=== PATIENT | female | born 1990 ===

== ENCOUNTER 2017-11-12 16:50 | Inpatient (IN) | payer BC, OTHER ==
[2017-11-12] MEDS: ELECTROLYTE-148 SOLN 1,000 ML IV SCH ×2 (17:00→20:20)
[2017-11-12 18:22] VITALS: BMI 38.0
[2017-11-12] MEDS ORDERED: BUTORPHANOL TARTRATE 1 MG/ML VIAL IVPB ONE (18:45)
[2017-11-12] MEDS ORDERED: PROMETHAZINE HCL 25 MG/1 ML VIAL IVPUSH ONE (18:45)
[2017-11-12 18:58] LABS: BASO % 0.6 % (0-2.0); EOS % 0.7 % (0-4.5); HEMATOCRIT 34.5 % (32.4-45.2); HEMOGLOBIN 11.6 GM/dL (10.7-15.3); LYMPH % 15.2 % (8-40); MCH 27.3 pg (25.7-33.7); MCHC 33.6 g/dl (32.0-36.0); MEAN CELL VOLUME 81.4 fl (80-96); MEAN PLT VOLUME 7.5 fl (7.5-11.1); MONO % 6.4 % (3.8-10.2); NEUT % 77.1 % (42.8-82.8); PLATELET COUNT 281 K/MM3 (134-434); RBC 4.23 M/mm3 (3.60-5.2); RDW 15.4 % (11.6-15.6); WHITE BLOOD COUNT 10.9 K/mm3 (4.0-10.0)
[2017-11-12] MEDS ORDERED: TUBERCULIN PPD 5 TU/0.1ML SYRINGE (IN PATIENT USE ONLY) ID ONE (19:00)
[2017-11-12] MEDS ORDERED: OXYTOCIN 30 UNITS in 0.9% NS 30 UNIT/500 ML INFUS.BAG IVPB SCH (19:00)
[2017-11-12 19:21] LABS: INR 1.02 (0.82-1.09); PROTHROMBIN TIME (PATIENT) 11.5 SEC (9.7-13.0)
[2017-11-12 19:23] LABS: ACTIVATED PTT 25.3 SECONDS (25.2-36.5)
[2017-11-12 19:27] LABS: ANION GAP 11 (8-16); BLOOD UREA NITROGEN 8 mg/dL (7-18); CALCIUM 8.4 mg/dL (8.5-10.1); CHLORIDE 108 mmol/L (98-107); CO2 21 mmol/L (21-32); CREATININE 0.4 mg/dL (0.55-1.02); GLUCOSE,RANDOM 66 mg/dL (74-106); POTASSIUM 3.9 mmol/L (3.5-5.1); SODIUM 140 mmol/L (136-145)
[2017-11-12] MEDS ORDERED: FENTANYL/BUPIVACAINE/NS/PF - PCEA - 50 ML DISP.SYRIN EP ONE (19:33)
[2017-11-12] MEDS ORDERED: OXYTOCIN 20 UNITS in 0.9% NS 20 UNIT/1,000 ML INFUS.BAG IV ONE (19:36)
[2017-11-12] MEDS ORDERED: BUPIVACAINE HCL/PF 0.25% (2.5MG/ML) 10 ML VIAL ONE (19:45)
[2017-11-12] MEDS: FENTANYL/BUPIVACAINE/NS/PF - PCEA - 50 ML DISP.SYRIN EP SCH (20:05)
[2017-11-12] MEDS ORDERED: NALOXONE HCL 0.4 MG/ML VIAL IVPUSH PRN (20:19)
--- NOTE | 2017-11-12 20:35 | HP ---
Past Medical History - Admission Chief Complaint: Here for induction of labor History of Present Illness: 27 y/o P1 female at 39 weeks here for elective induction of labor. Pregnany complicated only by maternal obesity. GBS negative. +FM, no VB. Occ Contractions. Pt 4cm dilated in office yesterday. History Source: Patient, Medical Record Limitations to Obtaining History: No Limitations - Past Medical History Cardiovascular: No: HTN Pulmonary: No: Asthma Gastrointestinal: No: GERD, Irritable Bowel Disease Hepatobiliary: No: Hepatitis B, Hepatitis C Renal/: No: Renal Failure, UTI Reproductive: No: Ectopic , Fibroids, PID ...: 6 ...Para: 1 ...Term: 1 ...: 0 ...Spon : 3 ...Induced : 1 ...Multiple Gestation: 0 ...LMP: 02/07/17 ... Weeks Gestation by Dates: 39.5 ...EDC by Dates: 11/14/17 ...EDC by Sono: 11/17/17 Heme/Onc: No: Anemia Psych: No: Anxiety, Bipolar, Depression - Past Surgical History Past Surgical History: Yes: None Hx Myomectomy: No Hx Transabdominal Cerclage: No - Smoking History Smoking history: Former smoker Have you smoked in the past 12 months: No If you are a former smoker, when did you quit?: 2017 - Alcohol/Substance Use Hx Alcohol Use: No History of Substance Use: reports: None - Social History Usual Living Arrangement: Yes: With Spouse ADL: Independent History of Recent Travel: No Home Medications - Allergies Allergies/Adverse Reactions: Allergies Allergy/AdvReac Type Severity Reaction Status Date / Time Penicillins Allergy Rash Verified 11/12/17 18:09 - Home Medications Home Medications: Ambulatory Orders Pnv No.95/Ferrous Fum/Folic AC [ Vitamin Tablet] 1 each PO DAILY Review of Systems - Review of Systems Constitutional: reports: No Symptoms Eyes: reports: No Symptoms HENT: reports: No Symptoms Neck: reports: No Symptoms Cardiovascular: reports: No Symptoms Respiratory: reports: No Symptoms Gastrointestinal: reports: No Symptoms Genitourinary: reports: No Symptoms Breasts: reports: No Symptoms Reported Musculoskeletal: reports: No Symptoms Integumentary: reports: No Symptoms Neurological: reports: No Symptoms Endocrine: reports: No Symptoms Hematology/Lymphatic: reports: No Symptoms Psychiatric: reports: No Symptoms Physical Exam - Maternity Vital Signs: Vital Signs Temperature 98.5 F 11/12/17 16:50 Pulse Rate 101 H 11/12/17 16:50 Respiratory Rate 20 11/12/17 16:50 Blood Pressure 133/75 11/12/17 16:50 O2 Sat by Pulse Oximetry (%) Constitutional: Yes: Well Nourished, No Distress, Calm HENT: Yes: Atraumatic, Normocephalic Neck: Yes: Supple, Trachea Midline Cardiovascular: Yes: Regular Rate and Rhythm Lungs: Clear to auscultation Breast(s): Yes: WNL - Abdominal Exam/OB Fundal Height: 39 Number of Fetuses: Single Presentation: Vertex Contractions: Yes Regularity: Irregular Intensity: Mild/Mod Monitor Mode: External Heart Rate (range): 140 Category: I Accelerations: Uniform Decelerations: None - Vaginal Exam/OB Vaginal Bleediing: No Dilatation (cm): 4 Effacement (%): 80 Amniotic Membrane Status: Intact Presentation: Vertex/Position Station: -2 - Physical Exam Extremities: Yes: WNL Integumentary: Yes: WNL ...Motor Strength: WNL Psychiatric: Yes: Alert, Oriented - Labs Lab Results: CBC, BMP 11/12/17 18:55 11/12/17 18:55 Hemorrhage Risk Assessment - Risk Factors Medium Risk Factors: Yes: None High Risk Factors: Yes: None Risk Score: 1 Risk Level: Medium Risk Problem List - Problems (1) Term Code(s): Z34.80 - [facility] [facility] [place] UNSP TRIMESTER Assessment/Plan 27 y/o P1 female with SIUP at 39 weeks, IOL FHTS cat 1 s/p epidural for pitocin and AROM
--- NOTE | 2017-11-12 20:53 | PN ---
Ante-Partal Exam - Subjective Vital Signs: Vital Signs Temperature 98.5 F 11/12/17 16:50 Pulse Rate 101 H 11/12/17 16:50 Respiratory Rate 20 11/12/17 16:50 Blood Pressure 133/75 11/12/17 16:50 O2 Sat by Pulse Oximetry (%) Bleeding: No Headache: No Visual changes: No Right upper quadrant pain: No - Contractions Contractions: Yes Regularity: Regular - Exam during Labor Heart Rate: 140 Variability: Moderate Category: I Monitor Accelerations: Present Monitor Decelerations: None Exam: Vaginal Dilatation (cm): 5 Effacement (%): 80 Amniotic Membrane Status: Ruptured (AROM for clear fluid) Presentation: Vertex Station: -2 - Assessment/Plan Assessment/Plan: 27 y/o with SIUP , 39 weeks, IOL s/p epidural, pt comfortable AROm at this exam continue pitocin anticipate
[2017-11-13] MEDS ORDERED: OXYTOCIN 20 UNITS in 0.9% NS 20 UNIT/1,000 ML INFUS.BAG IV ONE (00:25)
[2017-11-13] MEDS ORDERED: WITCH HAZEL 50% (TUCKS) 40 PAD/JAR PAD TP PRN (00:29)
[2017-11-13] MEDS ORDERED: METHYLERGONOVINE MALEATE 0.2 MG/1 ML AMP IM PRN (00:29)
[2017-11-13] MEDS ORDERED: BENZOCAINE 28 GM HEMORRHOIDAL OINTMENT TP PRN (00:29)
[2017-11-13] MEDS ORDERED: BISACODYL 10 MG SUPP.RECT RC PRN (00:29)
[2017-11-13] MEDS ORDERED: BENZOCAINE 20% 57 GM BOTTLE TP PRN (00:29)
[2017-11-13] MEDS ORDERED: LIDOCAINE HCL 1% PRESERVATIVE FREE - 30ML VIAL ONE (00:30)
--- NOTE | 2017-11-13 00:53 | PN ---
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
[2017-11-13] MEDS: OXYTOCIN 20 UNITS in 0.9% NS 20 UNIT/1,000 ML INFUS.BAG IV SCH (04:00)
[2017-11-13] MEDS: ACETAMINOPHEN 325 MG TABLET (FP) PO PRN ×4 (06:22→23:56)
[2017-11-13] MEDS: IBUPROFEN 600 MG TABLET (FP) PO PRN ×4 (06:23→23:56)
--- NOTE | 2017-11-13 07:31 | PN ---
Post Progress Note - Subjective Subjective: Pt seen/evaluated and doing well. Pain controlled, tolerating diet, ambulating , voiding, passing flatus. Type of Delivery: Vital Signs: Vital Signs Temperature 98.0 F 11/13/17 05:31 Pulse Rate 88 11/13/17 05:31 Respiratory Rate 20 11/13/17 05:31 Blood Pressure 123/71 11/13/17 05:31 O2 Sat by Pulse Oximetry (%) 100 11/13/17 02:15 Uterus: Yes: Fundus Firm Abdomen/GI: Yes: Abdomen soft Lochia: Yes: Rubra Lochia, amount: Small Extremities: Yes: Calves non-tender. No: Edema Perineum: Yes: Intact Activity: Ambulating - Labs Labs: CBC WBC 10.9 K/mm3 (4.0-10.0) H 11/12/17 18:55 RBC 4.23 M/mm3 (3.60-5.2) 11/12/17 18:55 Hgb 11.6 GM/dL (10.7-15.3) 11/12/17 18:55 Hct 34.5 % (32.4-45.2) 11/12/17 18:55 MCV 81.4 fl (80-96) 11/12/17 18:55 MCH 27.3 pg (25.7-33.7) 11/12/17 18:55 MCHC 33.6 g/dl (32.0-36.0) 11/12/17 18:55 RDW 15.4 % (11.6-15.6) 11/12/17 18:55 Plt Count 281 K/MM3 (134-434) 11/12/17 18:55 MPV 7.5 fl (7.5-11.1) 11/12/17 18:55 Absolute Neuts (auto) 8.4 # 11/12/17 18:55 Neutrophils % 77.1 % (42.8-82.8) 11/12/17 18:55 Lymphocytes % 15.2 % (8-40) 11/12/17 18:55 Monocytes % 6.4 % (3.8-10.2) 11/12/17 18:55 Eosinophils % 0.7 % (0-4.5) 11/12/17 18:55 Basophils % 0.6 % (0-2.0) 11/12/17 18:55 Nucleated RBC % 0 % (0-0) 11/12/17 18:55 Problem List - Problems (1) Term Code(s): Z34.80 - ENCOUNTER FOR SUPRVSN OF NORMAL , UNSP TRIMESTER (2) Vaginal delivery Code(s): O80 - ENCOUNTER FOR FULL-TERM UNCOMPLICATED DELIVERY Assessment/Plan 27 y/o PPD #0 s/p normal AFVSS regular diet encourage ambulation routine care
[2017-11-13] MEDS: PRENATAL VITAMINS W/ FOLIC ACID TABLET (FP) PO SCH (10:00)
[2017-11-14] MEDS: ELECTROLYTE-148 SOLN 1,000 ML IV SCH (02:26)
[2017-11-14] MEDS: OXYTOCIN 20 UNITS in 0.9% NS 20 UNIT/1,000 ML INFUS.BAG IV SCH (02:26)
[2017-11-14] MEDS: FENTANYL/BUPIVACAINE/NS/PF - PCEA - 50 ML DISP.SYRIN EP SCH (02:26)
[2017-11-14] MEDS: ACETAMINOPHEN 325 MG TABLET (FP) PO PRN ×4 (04:48→19:51)
[2017-11-14] MEDS: IBUPROFEN 600 MG TABLET (FP) PO PRN ×4 (04:48→19:51)
[2017-11-14 07:20] LABS: BASO % 0.6 % (0-2.0); HEMATOCRIT 30.5 % (32.4-45.2); HEMOGLOBIN 10.1 GM/dL (10.7-15.3); LYMPH % 24.7 % (8-40); MCH 27.2 pg (25.7-33.7); MCHC 33.2 g/dl (32.0-36.0); MEAN CELL VOLUME 82.2 fl (80-96); MEAN PLT VOLUME 7.8 fl (7.5-11.1); MONO % 8.6 % (3.8-10.2); NEUT % 64.1 % (42.8-82.8); PLATELET COUNT 234 K/MM3 (134-434); RBC 3.72 M/mm3 (3.60-5.2); RDW 15.9 % (11.6-15.6); WHITE BLOOD COUNT 11.4 K/mm3 (4.0-10.0)
[2017-11-14] MEDS: PRENATAL VITAMINS W/ FOLIC ACID TABLET (FP) PO SCH (09:38)
[2017-11-14] MEDS ORDERED: DIPHTH,PERTUSS(ACELL),TET 0.5 ML DISP.SYRIN IM ONE (10:00)
[2017-11-14] MEDS ORDERED: SENNOSIDES/DOCUSATE COMBO (SENNA PLUS) TABLET (UD) PO PRN (22:00)
--- NOTE | 2017-11-14 22:47 | PN ---
Post Progress Note - Subjective Subjective: 27 yo Para 2 status post normal vaginal delivery, seen and evaluated. Doing well. Post Day: 1 Type of Delivery: Vital Signs: Vital Signs Temperature 98.7 F 11/14/17 21:57 Pulse Rate 72 11/14/17 21:57 Respiratory Rate 20 11/14/17 21:57 Blood Pressure 121/68 11/14/17 21:57 O2 Sat by Pulse Oximetry (%) 100 11/13/17 02:15 Breast Exam: Yes: Soft Uterus: Yes: Fundus Firm Abdomen/GI: Yes: Abdomen soft, Tolerating PO Lochia: Yes: Rubra Lochia, amount: Moderate Extremities: Yes: Calves non-tender Activity: Ambulating - Labs Labs: CBC WBC 11.4 K/mm3 (4.0-10.0) H 11/14/17 06:30 RBC 3.72 M/mm3 (3.60-5.2) 11/14/17 06:30 Hgb 10.1 GM/dL (10.7-15.3) L 11/14/17 06:30 Hct 30.5 % (32.4-45.2) L 11/14/17 06:30 MCV 82.2 fl (80-96) 11/14/17 06:30 MCH 27.2 pg (25.7-33.7) 11/14/17 06:30 MCHC 33.2 g/dl (32.0-36.0) 11/14/17 06:30 RDW 15.9 % (11.6-15.6) H 11/14/17 06:30 Plt Count 234 K/MM3 (134-434) 11/14/17 06:30 MPV 7.8 fl (7.5-11.1) 11/14/17 06:30 Absolute Neuts (auto) 7.3 # 11/14/17 06:30 Neutrophils % 64.1 % (42.8-82.8) 11/14/17 06:30 Lymphocytes % 24.7 % (8-40) D 11/14/17 06:30 Monocytes % 8.6 % (3.8-10.2) 11/14/17 06:30 Eosinophils % 2.0 % (0-4.5) D 11/14/17 06:30 Basophils % 0.6 % (0-2.0) 11/14/17 06:30 Nucleated RBC % 0 % (0-0) 11/14/17 06:30 Assessment/Plan Status post vaginal delivery Stable Continue routine care
[2017-11-15] MEDS: IBUPROFEN 600 MG TABLET (FP) PO PRN ×2 (00:05→09:16)
[2017-11-15] MEDS: ACETAMINOPHEN 325 MG TABLET (FP) PO PRN ×2 (00:05→09:17)
[2017-11-15] MEDS: PRENATAL VITAMINS W/ FOLIC ACID TABLET (FP) PO SCH (09:16)
--- NOTE | 2017-11-15 09:35 | DS ---
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: Vital Signs Temperature 98.7 F 11/14/17 21:57 Pulse Rate 72 11/14/17 21:57 Respiratory Rate 20 11/14/17 21:57 Blood Pressure 121/68 11/14/17 21:57 O2 Sat by Pulse Oximetry (%) 100 11/13/17 02:15 Constitutional: Yes: Well Nourished, No Distress, Calm Labs: CBC, BMP 11/14/17 06:30 11/12/17 18:55 Delivery - Delivery Vaginal Delivery: No Problems Type of Anesthesia: Epidural Episiotomy/Laceration: None EBL (cc): 250 Delivery, Single - Stages of Labor Date 1st Stage Initiatied: 11/12/17 Time 1st Stage Initiated: 20:00 Date 2nd Stage Initiated: 11/13/17 Time 2nd Stage Initiated: 00:20 Date of Delivery: 11/13/17 Time of Delivery: 00:45 Date Placenta Delivered: 11/13/17 Time Placenta Delivered: 00:50 Placenta: Yes: Spontaneous - 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 Pt was given pitocin, membranes were ruptured artificially and pt recieved an epidural. She had an uncomplicated vaginal delivery on 11/13/2017. She had an uncomplicated post course and was discharged home on post day 2. Condition: Good - Instructions Diet, Activity, Other Instructions: Physical activity Resume your normal everyday activity as tolerated no heavy lifting or exercise until seen by your surgeon. You may walk [place] of and climb stairs. You may resume driving the car when you feel safe and comfortable behind the wheel. No sexual activity as instructed. Wound care If you have a bandage, leave it on, and keep dry for 48-72 hours. After that time discard the outer bandage. If they are tapes on the skin under the out of bandage leave them in place. They will peel off in the next 7 to 10 days. Do Not Peel them off. You may shower the day after surgery. If there are tapes present on the skin, you may shower over them. Diet There are no dietary restrictions. Eat healthy, high-fiber foods. Drink 6 to 8 glasses of liquid each day. This will assist in keeping your bowels are regular. Pain management You may take Tylenol or acetaminophen or Ibuprofen (for example, Motrin, Advil etc.) from my pain prescription medication is ordered should be taken as prescribed for moderate to severe pain. Call MD for any of the following: Severe pain not relieved by medication Fever of 101 or higher Excessive bleeding or drainage on dressing Inability to urinate Disposition: HOME - Home Medications Comprehensive Discharge Medication List: Ambulatory Orders Pnv No.95/Ferrous Fum/Folic AC [ Vitamin Tablet] 1 each PO DAILY Ibuprofen [Motrin -] 600 mg PO TID #21 tablet 11/15/17
[2017-11-15 10:16] VITALS: BP 120/59; PULSE 80; TEMP 98.8
== END 2017-11-15 11:00 | disposition home or self-care (01) | DRG 775 ==
LOC: JLDR 16:50 → J3W 11-13 05:13
PROVIDERS: ADMIT Obstetrics & Gynecology; ATTEND Obstetrics & Gynecology
PROC: 10E0XZZ Delivery of Products of Conception, External Approach (ICD-10-PCS; principal; 2017-11-13)
DX: O99.214 Obesity complicating childbirth (principal); E66.9 Obesity, unspecified; Z68.38 Body mass index [BMI] 38.0-38.9, adult; Z3A.39 39 weeks gestation of pregnancy; Z37.0 Single live birth; Z88.0 Allergy status to penicillin
CPT/HCPCS: 36415; 59409; 80048; 85025; 85610; 85730; 86593; 86850; 86900; 86901; 90715